=== PATIENT | male | born 1970 | race Caucasian/White ===

== ENCOUNTER 2024-02-08 16:13 | Outpatient (CLI) | payer BC | END 2024-02-08 16:14 | disposition home or self-care (01) | LOC: SCSRAD 16:13 | PROVIDERS: ATTEND Pediatrics | DX: M75.101 Unspecified rotator cuff tear or rupture of right shoulder, not specified as traumatic (principal) ==

== ENCOUNTER 2024-02-20 10:26 | Outpatient (CLI) | payer BC | END 2024-02-20 10:27 | disposition home or self-care (01) | LOC: SCSMRI 10:26 | PROVIDERS: ATTEND Pediatrics | DX: M75.101 Unspecified rotator cuff tear or rupture of right shoulder, not specified as traumatic (principal); S46.911A Strain of unspecified muscle, fascia and tendon at shoulder and upper arm level, right arm, initial encounter; M75.51 Bursitis of right shoulder; M75.81 Other shoulder lesions, right shoulder; S43.431A Superior glenoid labrum lesion of right shoulder, initial encounter ==